=== PATIENT | female | born 1935 | race African-American/Black ===

== ENCOUNTER 2022-10-18 21:37 | Inpatient (IN) | payer MEDICARE, OTHER ==
[~2022-10-18] VITALS: Ht 160 cm; Wt 67.8 kg
[2022-10-18] MEDS ORDERED: SODIUM CHLORIDE 0.9% 1,000 ML IV ONE (23:15)
[2022-10-18 23:36] LABS: CHLORIDE 100 mEq/L (98-107)
[2022-10-18 23:58] LABS: BASOPHILS % 0.9 % (0.0-2.0); EOSINOPHILS % 2.6 % (0.0-5.0); HEMOGLOBIN. 12.7 g/dL (12.0-16.0); LYMPHOCYTES % 39.9 % (20.0-50.0); MEAN CORPUSCULAR HEMOGLOBIN 27.8 pg (28.0-32.0); MEAN CORPUSCULAR VOLUME 85.6 fL (81.0-99.0); MEAN PLATELET VOLUME 9.5 fl (7.4-10.4); MONOCYTES % 5.7 % (2.0-8.0); NEUTROPHILS % 50.9 % (40.0-76.0); PLATELET 209 x1000/uL (130-400); RED BLOOD CELL COUNT 4.56 mill/uL (4.2-5.4); RED CELL DISTRIBUTION WIDTH 13.6 % (11.6-14.6)
[2022-10-19] MEDS ORDERED: HEPARIN 25,000 UNITS PREMIX 250 ML IV ONE (01:30)
[2022-10-19] MEDS ORDERED: HEPARIN 5000 UNITS/ML VIAL IV ONE (01:30)
[2022-10-19 01:56] LABS: INR 1.1; PARTIAL THROMBOPLASTIN TIME 30.8 sec (23.4-31.0); PROTHROMBIN TIME 11.4 sec (9.6-11.0)
[2022-10-19] MEDS ORDERED: HEPARIN 25,000 UNITS PREMIX 250 ML IV SCH (02:15)
[2022-10-19] MEDS ORDERED: HEPARIN 60 UNITS/KG BOLUS IV NR (02:30)
[2022-10-19] MEDS ORDERED: HEPARIN BOLUS PRN aPTT 30-44 IV (07:00)
[2022-10-19] MEDS ORDERED: HEPARIN BOLUS PRN aPTT <30 IV (07:00)
[2022-10-19 08:45] LABS: CLARITY URINE CLEAR (CLEAR); COLOR URINE YELLOW (YELLOW); KETONES URINE NEGATIVE (NEGATIVE); LEUKOCYTE ESTERASE URINE NEGATIVE (NEGATIVE); NITRITE URINE NEGATIVE (NEGATIVE); OCCULT BLOOD URINE NEGATIVE (NEGATIVE); PROTEIN URINE NEGATIVE (NEGATIVE); UROBILINOGEN URINE 0.2 E.U./dL (0.2-1.0)
[2022-10-19] MEDS ORDERED: ACETAMINOPHEN 325MG TABLET PO PRN ×2 (09:45)
[2022-10-19] MEDS ORDERED: DOCUSATE SODIUM 100MG CAPSULE PO PRN (09:45)
[2022-10-19] MEDS ORDERED: ONDANSETRON HCL 4MG/2ML INJ IV PRN (09:45)
[2022-10-19] MEDS: SODIUM CHLORIDE 0.9% INJ 3ML FLUSH IVF SCH ×3 (14:06→22:07)
[2022-10-19 15:00] VITALS: BP 120/95
[2022-10-19] MEDS ORDERED: ASPI-1406 PO (15:36)
[2022-10-19] MEDS ORDERED: ATOR10TA PO (15:36)
[2022-10-19] MEDS ORDERED: CHLO25TA2 PO (15:36)
[2022-10-19] MEDS ORDERED: POTA8TAB70 PO (15:48)
[2022-10-19 16:00] VITALS: BP 120/95
[2022-10-19 16:34] LABS: BASOPHILS % 0.9 % (0.0-2.0); EOSINOPHILS % 0.7 % (0.0-5.0); HEMATOCRIT. 39.3 % (36.0-48.0); HEMOGLOBIN. 12.9 g/dL (12.0-16.0); LYMPHOCYTES % 34.1 % (20.0-50.0); MEAN CORPUSCULAR HEMOGLOBIN 27.8 pg (28.0-32.0); MEAN CORPUSCULAR VOLUME 84.9 fL (81.0-99.0); MEAN PLATELET VOLUME 9.4 fl (7.4-10.4); MONOCYTES % 7.4 % (2.0-8.0); NEUTROPHILS % 56.9 % (40.0-76.0); PLATELET 212 x1000/uL (130-400); RED BLOOD CELL COUNT 4.63 mill/uL (4.2-5.4); RED CELL DISTRIBUTION WIDTH 13.5 % (11.6-14.6)
[2022-10-19 16:43] LABS: CHLORIDE 105 mEq/L (98-107)
[2022-10-19 16:53] LABS: CREATINE KINASE MB FRACTION 4.1 ng/mL (0.5-3.6)
[2022-10-19 20:00] VITALS: BP 137/69
[2022-10-19] MEDS: ATORVASTATIN CALCIUM 10MG TABLET PO SCH (22:07)
[2022-10-20] VITALS: BP 115/61
[2022-10-20] MEDS ORDERED: HEPARIN BOLUS PRN aPTT 30-44 IV (00:27)
[2022-10-20] MEDS ORDERED: HEPARIN BOLUS PRN aPTT <30 IV (00:28)
[2022-10-20 04:00] VITALS: BP 117/60
[2022-10-20] MEDS: PANTOPRAZOLE 40MG DR TABLET PO SCH (05:51)
[2022-10-20] MEDS: SODIUM CHLORIDE 0.9% INJ 3ML FLUSH IVF SCH ×4 (05:55→21:26)
[2022-10-20 07:49] LABS: BASOPHILS % 0.8 % (0.0-2.0); EOSINOPHILS % 1.7 % (0.0-5.0); HEMATOCRIT. 38.8 % (36.0-48.0); HEMOGLOBIN. 12.8 g/dL (12.0-16.0); LYMPHOCYTES % 32.3 % (20.0-50.0); MEAN CORPUSCULAR HEMOGLOBIN 28.2 pg (28.0-32.0); MEAN CORPUSCULAR VOLUME 85.5 fL (81.0-99.0); MEAN PLATELET VOLUME 11.1 fl (7.4-10.4); MONOCYTES % 7.3 % (2.0-8.0); NEUTROPHILS % 57.9 % (40.0-76.0); PLATELET 179 x1000/uL (130-400); RED BLOOD CELL COUNT 4.54 mill/uL (4.2-5.4); RED CELL DISTRIBUTION WIDTH 13.7 % (11.6-14.6)
[2022-10-20 08:00] VITALS: BP 107/67
[2022-10-20] MEDS: CHLORTHALIDONE 25MG TABLET PO SCH (10:07)
[2022-10-20] MEDS: POTASSIUM CHLORIDE 8 MEQ TABLET.SA PO SCH (10:08)
[2022-10-20] MEDS: ASPIRIN 81MG TABLET PO SCH (10:08)
[2022-10-20 12:00] VITALS: BP 107/57
[2022-10-20] MEDS ORDERED: ENOXAPARIN 30MG/0.3ML SYR SUBCUT SCH (12:00)
[2022-10-20 16:00] VITALS: BP 118/59
[2022-10-20] MEDS ORDERED: NITROGLYCERIN 0.4MG TABLET SL SL NR (18:00)
[2022-10-20] MEDS ORDERED: ENOXAPARIN 40MG/0.4ML SYR SUBCUT NR (19:00)
[2022-10-20] MEDS: NITROGLYCERIN OINT 1GM/INCH UDPKT TD SCH (19:20)
[2022-10-20 20:00] VITALS: BP 106/77
[2022-10-20] MEDS: ATORVASTATIN CALCIUM 10MG TABLET PO SCH (21:26)
[2022-10-21] VITALS: BP 118/66
[2022-10-21 04:00] VITALS: BP 128/76
[2022-10-21] MEDS: NITROGLYCERIN OINT 1GM/INCH UDPKT TD SCH ×3 (06:06→21:17)
[2022-10-21] MEDS: SODIUM CHLORIDE 0.9% INJ 3ML FLUSH IVF SCH ×3 (06:06→21:18)
[2022-10-21] MEDS: PANTOPRAZOLE 40MG DR TABLET PO SCH (06:07)
[2022-10-21 06:34] LABS: BASOPHILS % 0.7 % (0.0-2.0); EOSINOPHILS % 2.1 % (0.0-5.0); HEMATOCRIT. 37.1 % (36.0-48.0); HEMOGLOBIN. 12.2 g/dL (12.0-16.0); LYMPHOCYTES % 42.4 % (20.0-50.0); MEAN CORPUSCULAR VOLUME 85.2 fL (81.0-99.0); MEAN PLATELET VOLUME 9.9 fl (7.4-10.4); MONOCYTES % 8.9 % (2.0-8.0); NEUTROPHILS % 45.9 % (40.0-76.0); PLATELET 173 x1000/uL (130-400); RED BLOOD CELL COUNT 4.35 mill/uL (4.2-5.4); RED CELL DISTRIBUTION WIDTH 13.8 % (11.6-14.6)
[2022-10-21 06:49] LABS: CHLORIDE 104 mEq/L (98-107)
[2022-10-21 08:00] VITALS: BP 122/68
[2022-10-21] MEDS: CHLORTHALIDONE 25MG TABLET PO SCH (08:56)
[2022-10-21] MEDS: ASPIRIN 81MG TABLET PO SCH (08:56)
[2022-10-21] MEDS: POTASSIUM CHLORIDE 8 MEQ TABLET.SA PO SCH (08:56)
[2022-10-21 12:00] VITALS: BP 107/48
[2022-10-21] MEDS ORDERED: ENOXAPARIN 80MG/0.8ML SYR SUBCUT SCH (12:00)
[2022-10-21 16:00] VITALS: BP 107/64
[2022-10-21 20:00] VITALS: BP 107/53
[2022-10-21] MEDS: ATORVASTATIN CALCIUM 10MG TABLET PO SCH (20:23)
[2022-10-21] MEDS: ENOXAPARIN 40MG/0.4ML SYR SUBCUT SCH (20:24)
[2022-10-22] VITALS: BP 114/59
[2022-10-22 04:00] VITALS: BP 123/63
[2022-10-22] MEDS: SODIUM CHLORIDE 0.9% INJ 3ML FLUSH IVF SCH ×3 (06:15→21:02)
[2022-10-22] MEDS: NITROGLYCERIN OINT 1GM/INCH UDPKT TD SCH ×3 (06:15→21:02)
[2022-10-22 06:18] LABS: BASOPHILS % 0.7 % (0.0-2.0); HEMATOCRIT. 37.5 % (36.0-48.0); HEMOGLOBIN. 12.3 g/dL (12.0-16.0); LYMPHOCYTES % 30.5 % (20.0-50.0); MEAN CORPUSCULAR HEMOGLOBIN 27.9 pg (28.0-32.0); MEAN CORPUSCULAR VOLUME 85.1 fL (81.0-99.0); MEAN PLATELET VOLUME 10.2 fl (7.4-10.4); MONOCYTES % 8.7 % (2.0-8.0); NEUTROPHILS % 57.1 % (40.0-76.0); PLATELET 159 x1000/uL (130-400); RED BLOOD CELL COUNT 4.41 mill/uL (4.2-5.4); RED CELL DISTRIBUTION WIDTH 14.1 % (11.6-14.6)
[2022-10-22 07:40] LABS: CHLORIDE 103 mEq/L (98-107)
[2022-10-22 08:00] VITALS: BP 122/63
[2022-10-22] MEDS: POTASSIUM CHLORIDE 8 MEQ TABLET.SA PO SCH (09:53)
[2022-10-22] MEDS: CHLORTHALIDONE 25MG TABLET PO SCH (09:53)
[2022-10-22] MEDS: FAMOTIDINE 20MG TABLET PO SCH (09:54)
[2022-10-22] MEDS: ASPIRIN 81MG TABLET PO SCH (09:54)
[2022-10-22 12:00] VITALS: BP 123/65
[2022-10-22 16:00] VITALS: BP 134/80
[2022-10-22 20:00] VITALS: BP 107/61
[2022-10-22] MEDS: ATORVASTATIN CALCIUM 10MG TABLET PO SCH (20:49)
[2022-10-22] MEDS: ENOXAPARIN 40MG/0.4ML SYR SUBCUT SCH (20:50)
[2022-10-23] VITALS: BP 101/66
[2022-10-23 04:00] VITALS: BP 110/60
[2022-10-23] MEDS: NITROGLYCERIN OINT 1GM/INCH UDPKT TD SCH ×2 (05:44→14:42)
[2022-10-23] MEDS: SODIUM CHLORIDE 0.9% INJ 3ML FLUSH IVF SCH ×2 (05:44→14:41)
[2022-10-23 07:05] LABS: BASOPHILS % 0.7 % (0.0-2.0); EOSINOPHILS % 1.1 % (0.0-5.0); HEMATOCRIT. 37.9 % (36.0-48.0); HEMOGLOBIN. 12.6 g/dL (12.0-16.0); LYMPHOCYTES % 22.4 % (20.0-50.0); MEAN CORPUSCULAR HEMOGLOBIN 28.1 pg (28.0-32.0); MEAN CORPUSCULAR VOLUME 84.8 fL (81.0-99.0); MEAN PLATELET VOLUME 10.4 fl (7.4-10.4); MONOCYTES % 9.6 % (2.0-8.0); NEUTROPHILS % 66.2 % (40.0-76.0); PLATELET 166 x1000/uL (130-400); RED BLOOD CELL COUNT 4.47 mill/uL (4.2-5.4); RED CELL DISTRIBUTION WIDTH 13.8 % (11.6-14.6)
[2022-10-23 08:00] VITALS: BP 100/69
[2022-10-23] MEDS: CHLORTHALIDONE 25MG TABLET PO SCH (09:00)
[2022-10-23] MEDS: ASPIRIN 81MG TABLET PO SCH (09:14)
[2022-10-23] MEDS: FAMOTIDINE 20MG TABLET PO SCH (09:14)
[2022-10-23] MEDS: POTASSIUM CHLORIDE 8 MEQ TABLET.SA PO SCH (09:14)
[2022-10-23 09:40] LABS: CHLORIDE 101 mEq/L (98-107)
[2022-10-23 11:55] VITALS: BP 107/56
[2022-10-23 16:00] VITALS: BP 109/59
[2022-10-23] MEDS ORDERED: CLOP-31 MT (17:09)
[2022-10-23 18:25] VITALS: BP 109/59
== END 2022-10-23 19:32 | disposition home or self-care (01) | DRG 282 ==
LOC: ER 21:37 → 7EST 10-19 04:57 → EDBEDREQTM 10-19 05:00 → EDBEDREQ 10-19 05:00 → EDBEDREQSVC 10-19 13:08
PROVIDERS: ADMIT Internal Medicine; ATTEND Internal Medicine
DX: I21.4 Non-ST elevation (NSTEMI) myocardial infarction (principal); I10 Essential (primary) hypertension; F03.90 Unspecified dementia, unspecified severity, without behavioral disturbance, psychotic disturbance, mood disturbance, and anxiety; R79.89 Other specified abnormal findings of blood chemistry; Z78.1 Physical restraint status; Z86.73 Personal history of transient ischemic attack (TIA), and cerebral infarction without residual deficits
CPT/HCPCS: 36415; 71045; 76856; 80048; 80053; 81003; 82553; 83605; 83880; 84484; 85025; 86304; 93005; 93306; 99291; C1893; J1644; J1650; J7030